=== PATIENT | male | born 1990 | race Caucasian/White ===

== ENCOUNTER → 2025-06-23 | Outpatient (CLI) | payer BC, MEDICAID, SELFPAY ==
--- NOTE | 2025-06-23 09:22 | XR_ITS ---
Examination: PA lateral chest 2 views TECHNIQUE: Upright PA lateral chest 2 views Date and time: June 23, 2025, 0928 hours, comparison May 06, 2024 INDICATIONS: Chest pain coughing beginning 2 days ago. FINDINGS: Minimal prominence left ventricle No pneumonia or pulmonary edema Mild osteopenia IMPRESSION: No active disease.
== END | disposition home or self-care (01) ==
LOC: CDIM 09:12
PROVIDERS: PCP Nurse Practitioner Family; Referring Provider Nurse Practitioner Family; Visit Provider Nurse Practitioner Family
DX: R05.1 Acute cough (principal); R07.81 Pleurodynia; Z87.01 Personal history of pneumonia (recurrent); Z87.09 Personal history of other diseases of the respiratory system
CPT/HCPCS: 71046

== ENCOUNTER → 2025-07-31 | Outpatient (CLI) | payer BC, MEDICAID, SELFPAY ==
--- NOTE | 2025-07-31 09:54 | XR_ITS ---
Examination: Shoulder, right, 3 views Technique: Shoulder AP internal rotation, AP external rotation, Y view shoulder, 3 views Exam date and time : July 31, 2025, 10 0 5:00 a.m. INDICATIONS: Right shoulder pain beginning 7 months ago FINDINGS: Mild narrowing glenohumeral joint No shoulder fracture or dislocation No calcific tendinitis IMPRESSION: Mild narrowing glenohumeral joint
== END | disposition home or self-care (01) ==
LOC: CDIM 09:44
PROVIDERS: PCP Physician Assistant; Referring Provider Physician Assistant; Visit Provider Physician Assistant
DX: M25.811 Other specified joint disorders, right shoulder (principal)
CPT/HCPCS: 73030